=== PATIENT | female | born 2000 | race Caucasian/White ===

== ENCOUNTER 2018-04-21 13:21 | Emergency (ER) | payer BC, OTHER, MEDICAID ==
[~2018-04-21] VITALS: Ht 167.6 cm; Wt 120.5 kg
[2018-04-21] MEDS ORDERED: AZIT-12 PO (13:32)
[2018-04-21] MEDS ORDERED: LAMO25TA2 PO (13:32)
[2018-04-21] MEDS ORDERED: LIDOCAINE VISCOUS 2% SOLN 15ML UDC SS ONE (13:45)
[2018-04-21] MEDS ORDERED: ACETAMINOPHEN 325 MG TAB PO ONE (13:45)
[2018-04-21 14:43] LABS: MONO REFLEX EBV COMP NEGATIVE (NEGATIVE)
[2018-04-21 15:10] VITALS: BP 148/75
[2018-04-21] MEDS ORDERED: APAP500T10 PO (15:18)
[2018-04-21] MEDS ORDERED: LIDVISCBTL SS (15:18)
[2018-04-21] MEDS ORDERED: ACET1LIQ PO (22:00)
[2018-04-21] MEDS ORDERED: CHIL100S45 PO (22:00)
[2018-04-23 00:40] LABS: EBV AB TO NUCLEAR ANTIGEN <18.0 U/mL (0.0-17.9); EBV VIRAL CAPSID AG IgM <36.0 U/mL (0.0-35.9)
== END 2018-04-21 15:30 | disposition home or self-care (01) ==
LOC: M ED 13:21
DX: J02.8 Acute pharyngitis due to other specified organisms (principal); Z88.1 Allergy status to other antibiotic agents; Z79.2 Long term (current) use of antibiotics; Z79.899 Other long term (current) drug therapy

== ENCOUNTER 2018-04-21 19:30 | Emergency (ER) | payer BC, OTHER, MEDICAID ==
[2018-04-21] MEDS: ONDANSETRON 4 MG ORAL DISINTEGRATING TAB (Q0162 PER 1MG) PO (20:04)
[2018-04-21] MEDS: ACETAMINOPHEN SUSP DYE FREE 160 MG/5 ML UDC PO (21:15)
[2018-04-21] MEDS: IBUPROFEN 100 MG/5 ML SUSP UDC DYE FREE PO (21:15)
[2018-04-21] MEDS: dexameTHASONE 4 MG/ML 1ML VIAL (J1100) PO (21:15)
== END 2018-04-21 22:11 | disposition home or self-care (01) ==
LOC: M ED 19:30
DX: J02.8 Acute pharyngitis due to other specified organisms (principal); Z87.891 Personal history of nicotine dependence
CPT/HCPCS: J1100

== ENCOUNTER → 2018-04-29 | Outpatient (CLI) | payer BC, OTHER, MEDICAID ==
[~2018-04-29] MED LIST: ACET1LIQ PO; APAP500T10 PO; AZIT-12 PO; CHIL100S45 PO; LAMO25TA4 PO; LIDVISCBTL SS
[2018-04-29 13:08] LABS: APPEARANCE, URINE HAZY (CLEAR); BACTERIA, URINE AUTO 1+ (NEGATIVE); BILIRUBIN, URINE AUTO NEGATIVE (NEGATIVE); BLOOD, URINE BLOOD NEGATIVE (NEGATIVE); COLOR, URINE YELLOW (YELLOW); GLUCOSE, URINE (UA) AUTO NEGATIVE (NEGATIVE); KETONE, URINE AUTO NEGATIVE (NEGATIVE); LEUKOCYTE ESTERASE, URINE AUTO NEGATIVE (NEGATIVE); MUCUS, URINE SMALL (NEGATIVE); NITRITE, URINE AUTO NEGATIVE (NEGATIVE); PROTEIN, URINE AUTO NEGATIVE (NEGATIVE); RBC, URINE AUTO 1 /HPF (0-3); SPECIFIC GRAVITY URINE AUTO 1.016 (1.002-1.035); SQUAMOUS EPITHELIAL CELL UR AU 3 /HPF (0-6); UROBILINOGEN, URINE AUTO 0.2 mg/dL (0.0-2.0); WBC, URINE AUTO 1 /HPF (0-3)
[2018-04-29 13:14] LABS: ALBUMIN 3.5 GM/DL (3.2-5.2); ALT/SGPT 33 U/L (12-78); BILIRUBIN,TOTAL 0.4 MG/DL (0.2-1.0); BLOOD UREA NITROGEN 17 MG/DL (7-18); CALCIUM LEVEL 8.8 MG/DL (8.5-10.1); CARBON DIOXIDE LEVEL 29 MEQ/L (21-32); CHLORIDE LEVEL 105 MEQ/L (98-107); CREATININE FOR GFR 0.89 MG/DL (0.55-1.30); GLUCOSE, FASTING 102 MG/DL (70-100); SODIUM LEVEL 141 MEQ/L (136-145); THYROID STIMULATING HORMONE 0.792 uIU/ML (0.463-3.98)
[2018-04-30 10:27] LABS: HEPATITIS B SURFACE ANTIBODY NEGATIVE (POSITIVE)
[2018-04-30 10:38] LABS: HEPATITIS B SURFACE ANTIGEN NEGATIVE (NEGATIVE)
[2018-05-07 14:14] LABS: HEPATITIS A IgG TOTAL Negative (Negative); HEPATITIS C QUANTITATION HCV Not Detected IU/mL (.)
== END ==
LOC: M SMT 09:08
PROVIDERS: ATTEND Physician Assistant Medical
DX: Z02.1 Encounter for pre-employment examination (principal); B18.2 Chronic viral hepatitis C; B16.9 Acute hepatitis B without delta-agent and without hepatic coma; B15.9 Hepatitis A without hepatic coma

== ENCOUNTER → 2018-10-26 | Outpatient (CLI) | payer BC, OTHER, MEDICAID ==
[2018-10-26 12:40] LABS: APPEARANCE, URINE CLEAR (CLEAR); BACTERIA, URINE AUTO NEGATIVE (NEGATIVE); BILIRUBIN, URINE AUTO NEGATIVE (NEGATIVE); BLOOD, URINE BLOOD 3+ (NEGATIVE); COLOR, URINE YELLOW (YELLOW); GLUCOSE, URINE (UA) AUTO NEGATIVE (NEGATIVE); KETONE, URINE AUTO NEGATIVE (NEGATIVE); LEUKOCYTE ESTERASE, URINE AUTO NEGATIVE (NEGATIVE); MUCUS, URINE SMALL (NEGATIVE); NITRITE, URINE AUTO NEGATIVE (NEGATIVE); PROTEIN, URINE AUTO NEGATIVE (NEGATIVE); RBC, URINE AUTO 138 /HPF (0-3); SPECIFIC GRAVITY URINE AUTO 1.015 (1.002-1.035); SQUAMOUS EPITHELIAL CELL UR AU 1 /HPF (0-6); UROBILINOGEN, URINE AUTO 0.2 mg/dL (0.0-2.0); WBC, URINE AUTO 1 /HPF (0-3)
[2018-10-26 12:41] LABS: BASO % 0.3 % (0.0-1.0); EOS # 0.1 10^3/uL (0.0-0.50); EOS % 1.1 % (0.0-3.0); HEMATOCRIT 38.9 % (36.0-47.0); HEMOGLOBIN 12.7 g/dl (12.0-15.5); LYMPH # 2.3 10^3/uL (1.5-6.5); LYMPH % 23.4 % (24.0-44.0); MEAN CORPUSCULAR HEMOGLOBIN 28.5 pg (27.0-33.0); MEAN CORPUSCULAR HGB CONC 32.6 g/dl (32.0-36.5); MEAN CORPUSCULAR VOLUME 87.2 fl (80.0-96.0); MONO # 0.7 10^3/uL (0.0-0.8); MONO % 7.6 % (0.0-5.0); NEUTROPHILS # 6.5 10^3/uL (1.8-7.7); NEUTROPHILS % 67.3 % (36.0-66.0); PLATELET COUNT, AUTOMATED 304 10^3/uL (150-450); RED BLOOD COUNT 4.46 10^6/uL (4.00-5.40); WHITE BLOOD COUNT 9.7 10^3/uL (4.0-10.0)
[2018-10-26 13:17] LABS: ALBUMIN 3.8 GM/DL (3.2-5.2); ALT/SGPT 23 U/L (12-78); BILIRUBIN,TOTAL 0.7 MG/DL (0.2-1.0); BLOOD UREA NITROGEN 18 MG/DL (7-18); CALCIUM LEVEL 9.1 MG/DL (8.5-10.1); CARBON DIOXIDE LEVEL 27 MEQ/L (21-32); CHLORIDE LEVEL 108 MEQ/L (98-107); CREATININE FOR GFR 0.75 MG/DL (0.55-1.30); GLUCOSE, FASTING 84 MG/DL (70-100); POTASSIUM SERUM 4.5 MEQ/L (3.5-5.1); SODIUM LEVEL 141 MEQ/L (136-145); TOTAL PROTEIN 7.1 GM/DL (6.4-8.2)
[2018-10-27 10:10] LABS: HEPATITIS B SURFACE ANTIGEN NEGATIVE (NEGATIVE)
[2018-10-27 10:36] LABS: HEPATITIS C VIRUS ABY INDEX 0.1 INDEX (<0.8)
[2018-10-27 10:37] LABS: HEPATITIS B CORE ANTIBODY IGM NEGATIVE (NEGATIVE)
[2018-10-27 10:39] LABS: HEPATITIS A ANTIBODY IGM NEGATIVE (NEGATIVE)
== END ==
LOC: M LAB 12:01
PROVIDERS: ATTEND Physician Assistant Medical
DX: Z02.2 Encounter for examination for admission to residential institution (principal)

== ENCOUNTER 2018-11-04 17:04 | Emergency (ER) | payer BC, OTHER, MEDICAID ==
[~2018-11-04] VITALS: Ht 167.6 cm; Wt 129.7 kg
[2018-11-04 17:04] VITALS: BP 137/77
[2018-11-04] MEDS ORDERED: FLUTISP (17:10)
[2018-11-04] MEDS ORDERED: TRIA1OI TOP (17:43)
== END 2018-11-04 17:51 | disposition home or self-care (01) ==
LOC: M ED 17:04
DX: J35.8 Other chronic diseases of tonsils and adenoids (principal); K12.0 Recurrent oral aphthae; R07.0 Pain in throat; Z87.891 Personal history of nicotine dependence; Z79.899 Other long term (current) drug therapy; Z88.1 Allergy status to other antibiotic agents

== ENCOUNTER 2018-12-02 12:49 | Emergency (ER) | payer BC, OTHER, MEDICAID ==
[~2018-12-02] VITALS: Ht 170.2 cm; Wt 129.6 kg
[~2018-12-02 12:49] MED LIST changes: +FLUTISP; +TRIA1OI TOP
[2018-12-02 13:11] VITALS: BP 134/76
== END 2018-12-02 13:56 | disposition home or self-care (01) ==
LOC: M ED 12:49
DX: F43.20 Adjustment disorder, unspecified (principal); J30.2 Other seasonal allergic rhinitis; F15.10 Other stimulant abuse, uncomplicated; Z88.1 Allergy status to other antibiotic agents